=== PATIENT | male | born 2000 | race Caucasian/White ===

== ENCOUNTER 2024-08-28 04:39 | Emergency (ER) | payer SELFPAY ==
[2024-08-28 04:43] VITALS: BP 128/78
[2024-08-28 05:42] VITALS: BMI 23.9
[2024-08-28 06:00] VITALS: BP 121/80
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
[2024-08-28 07:00] VITALS: BP 130/72
[2024-08-28] MEDS: TYLENOL 1000 MG PO (07:50)
[2024-08-28 08:00] VITALS: BP 128/68
[2024-08-28 09:00] VITALS: BP 115/60
[2024-08-28 10:00] VITALS: BP 133/76
[2024-08-28] MEDS: CILOXAN 0.3% OPHTHALMIC SOLUTION 4 DROP OPHTH (10:34)
== END 2024-08-28 10:50 | disposition home or self-care (01) ==
LOC: EMR 04:39
PROVIDERS: EMERGENCY PHYSICIAN Emergency Medicine
DX: T15.82XA Foreign body in other and multiple parts of external eye, left eye, initial encounter (principal); T15.81XA Foreign body in other and multiple parts of external eye, right eye, initial encounter; S60.511A Abrasion of right hand, initial encounter; V40.9XXA Unspecified car occupant injured in collision with pedestrian or animal in traffic accident, initial encounter
CPT/HCPCS: 65205; 99284; 70450; 70480; 72125

== ENCOUNTER 2024-08-30 12:57 | Emergency (ER) | payer BC, SELFPAY ==
[2024-08-30 12:59] VITALS: BP 141/83
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
[2024-08-30] MEDS: RABAVERT RABIES VACC W-DILUENT 2.5 UNIT IM (13:49)
[2024-08-30] MEDS: ADACEL 0.5 ML IM (13:52)
[2024-08-30] MEDS: HyperRAB 1637 UNIT IM (13:54)
[2024-08-30 14:31] VITALS: BP 113/81
== END 2024-08-30 14:33 | disposition home or self-care (01) ==
LOC: EMR 12:57
PROVIDERS: EMERGENCY PHYSICIAN Emergency Medicine
DX: Z20.3 Contact with and (suspected) exposure to rabies (principal); Z23 Encounter for immunization; S02.31XD Fracture of orbital floor, right side, subsequent encounter for fracture with routine healing; S00.81XD Abrasion of other part of head, subsequent encounter; T15.9 Foreign body on external eye, part unspecified; V40.5XXD Car driver injured in collision with pedestrian or animal in traffic accident, subsequent encounter
CPT/HCPCS: 99284; 90471; 96372; 90375; 90675; 90715

== ENCOUNTER 2024-09-06 13:38 | Outpatient (RCR) | payer BC, SELFPAY ==
[2024-09-02 14:49] VITALS: BP 126/72
[2024-09-02] MEDS: RABAVERT RABIES VACC W-DILUENT 2.5 UNIT IM (15:11)
[2024-09-06 14:05] VITALS: BP 127/83
[2024-09-06] MEDS: RABAVERT RABIES VACC W-DILUENT 2.5 UNIT IM (14:27)
== END 2024-09-07 10:26 | disposition home or self-care (01) ==
LOC: OID 13:38
PROVIDERS: ATTENDING PHYSICIAN Emergency Medicine
DX: Z20.3 Contact with and (suspected) exposure to rabies (principal); Z23 Encounter for immunization
CPT/HCPCS: 90471; 90675

== ENCOUNTER 2024-09-13 15:28 | Outpatient (RCR) | payer BC, SELFPAY ==
[2024-09-13 15:34] VITALS: BP 137/86
[2024-09-13] MEDS: RABAVERT RABIES VACC W-DILUENT 2.5 UNIT IM (15:42)
== END 2024-09-14 08:37 | disposition home or self-care (01) ==
LOC: OID 15:28
PROVIDERS: ATTENDING PHYSICIAN Emergency Medicine
DX: Z20.3 Contact with and (suspected) exposure to rabies (principal); Z23 Encounter for immunization
CPT/HCPCS: 90471; 90675